=== PATIENT | female | born 1990 | race African-American/Black ===

== ENCOUNTER 2017-07-11 11:57 | Emergency (ER) | payer BC ==
[~2017-07-11] VITALS: Ht 162.6 cm; Wt 59.0 kg
--- NOTE | 2017-07-11 12:46 | Emergency Room Report ---
History of Present Illness General Chief Complaint: General Complaint Source: Patient (David Patterson) Present Illness HPI 27 yo female patient presents to ER with multiple complaints x2 days. Patient complains of hair loss, cough, and joint pain. Reports cough is dry. Denies breathing difficulty. Hx of sick contacts. Reports cough began prior to flight to [place]; lives in [place] for school. Denies fever, chest pain, SOB. Denies hx of asthma or cardiovascular disease. Denies calf pain. Denies taking anticoagulants. Denies itching scalp, denies pain or drainage from scalp. Reports hair loss from scalp and eyebrows. Denies new medications, detergents, or soaps. Patient denies hx of heart, thyroid, or rheumatological disease. Reports recent stress; states engaged and going to [employer] to plan wedding tomorrow; and mother in ER with patient. Reports joint warmth. Denies hx of gout or RA. Denies hx of lupus. Denies dysuria, hematuria, vaginal discharge. Denies vomiting, diarrhea, abdominal pain. Denies . Takes control, denies vaginal pain, dysuria. Also complains of left toe pain. Denies hx of injury. Reports walking with "little bit" of a limp Denies pain worse in morning. Reports feels similar to swelling in other joints. Reports workout 5x/ week, (David Patterson) Allergies: Coded Allergies: No Known Allergies (Unverified , 07/11/17) Patient History Past Medical History: see triage record Now: No Reviewed Nursing Documentation: PMH: Agreed, PSxH: Agreed (David Patterson) Nursing Documentation-PMH Past Medical History: No Stated History (David Patterson) Review of Systems All Other Systems: negative except mentioned in HPI (David Patterson) Physical Exam Vital Signs Date Time Temp Pulse Resp B/P (MAP) Pulse Ox O2 Delivery O2 Flow Rate FiO2 07/11/17 12:28 98.0 78 16 110/70 98 Room Air 98.1 Sp02 EP Interpretation: reviewed, normal General Appearance: well appearing, no apparent distress, alert, GCS 15 Head: normocephalic, atraumatic, other - no bald patches, no broken hair shafts Eyes: bilateral eye normal inspection, bilateral eye PERRL ENT: hearing grossly normal, normal pharynx, no angioedema, normal voice, TMs + canals normal, uvula midline, moist mucus membranes Neck: full range of motion Respiratory: lungs clear, normal breath sounds, no rhonchi, no respiratory distress, no accessory muscle use, no wheezing, speaking full sentences Cardiovascular #1: regular rate, rhythm, no edema Cardiovascular #2: 2+ radial (R), 2+ radial (L), 2+ dorsalis pedis (R), 2+ dorsalis pedis (L) Gastrointestinal: non tender, soft, no mass, non-distended, no guarding, no rebound Genitourinary: no CVA tenderness Musculoskeletal: back normal, digits/nails normal, gait/station normal, normal range of motion, non-tender, no calf tenderness, Dionisio's Sign negative, other - NVI, no erythema or ecchymosis, sensation intact to light touch, tender - left foot, second toe: TTP, cap refill <2 seconds, mild swelling Neurologic: alert, oriented x3, responsive, audio visual manager III-XII nml as tested, motor strength/tone normal, sensory intact Psychiatric: mood/affect normal Skin: no rash Lymphatic: no adenopathy (David Patterson PMiladisAMiladis) Medical Decision Making PA Attestation Dr. Abdul is my supervising Physician whom patient management has been discussed with. (David Patterson P.AMiladis) Diagnostic Impression: Primary Impression: Hair loss Additional Impressions: Joint pain Cough Toe fracture ER Course Pt. presents to the ED c/o multiple complaints. Multiple differentials considered. Ddx considered but are not limited to thyroid disorder, systemic disorder, infection, , fracture, sprain, strain, contusion. Low suspicion for PE per Well's criteria. No hemoptysis, no chest pain, no shortness of breath, Negative Dionisio sign. Vital signs: are WNL, pt. is afebrile Ordered labs, UA, xray foot and pain medication. ED COURSE: Provided with Tylenol for pain. Xray of right foot ordered. Results show possible hairline fracture per the preliminary reading. Will treat as fracture. Will tristen tape shoe and place foot in hard-soled shoe. Take NSAIDs for pain. Followup with ortho. WBAT. RICE method. Labs unremarkable, no elevation in WBC, no elevation in liver enzymes Urine unremarkable Urine negative TSH WNL Discussed results with patient. Followup with primary care provider and employment instructional associate for hair loss. May be related to stress or systemic disorder. No signs of infection, does not require medication for treatment at this time. Take NSAIDs for joint pain. Patient declined crutches. Patient questions asked and answered. DISCHARGE: Rx provided for Tylenol Rx provided for promethazine cough syrup At this time pt is stable for d/c to home. Patient is resting comfortably, in no acute distress, nontoxic appearing, talking without difficulty, laughing and smiling. Patient to take medications as instructed Will provide with patient care instructions and any necessary prescriptions. Care plan and follow-up instructions provided. Patient instructed to follow-up with primary care provider in 3 - 5 days. Patient questions asked and answered. Patient reports understanding and agreement to treatment plan. ER precautions given. Patient instructed to return to ER immediately for any new or worsening of symptoms including but not limited to increasing SOB, persistent fever. Labs Test 07/11/17 13:05 07/11/17 13:15 Urine Color Pale yellow Urine Appearance Clear Urine pH 6 (4.5-8.0) Urine Specific [place] 1.010 (1.005-1.035) Urine Protein Negative (NEGATIVE) Urine Glucose (UA) Negative (NEGATIVE) Urine Ketones Negative (NEGATIVE) Urine Occult Blood Negative (NEGATIVE) Urine Nitrite Negative (NEGATIVE) Urine Bilirubin Negative (NEGATIVE) Urine Urobilinogen Normal MG/DL (0.0-1.0) Urine Leukocyte Esterase Negative (NEGATIVE) Urine HCG, Qualitative Negative White Blood Count 6.2 K/UL (4.8-10.8) Red Blood Count 4.70 M/UL (4.20-5.40) Hemoglobin 13.5 G/DL (12.0-16.0) Hematocrit 40.4 % (37.0-47.0) Mean Corpuscular Volume 86 FL (80-99) Mean Corpuscular Hemoglobin 28.6 PG (27.0-31.0) Mean Corpuscular Hemoglobin Concent 33.4 G/DL (32.0-36.0) Red Cell Distribution Width 11.7 % (11.6-14.8) Platelet Count 235 K/UL (150-450) Mean Platelet Volume 7.8 FL (6.5-10.1) Neutrophils (%) (Auto) 53.0 % (45.0-75.0) Lymphocytes (%) (Auto) 27.3 % (20.0-45.0) Monocytes (%) (Auto) 8.8 % (1.0-10.0) Eosinophils (%) (Auto) 10.1 % (0.0-3.0) Basophils (%) (Auto) 0.9 % (0.0-2.0) Sodium Level 138 MMOL/L (136-145) Potassium Level 4.3 MMOL/L (3.5-5.1) Chloride Level 107 MMOL/L (98-107) Carbon Dioxide Level 23 MMOL/L (21-32) Anion Gap 8 mmol/L (5-15) Blood Urea Nitrogen 13 mg/dL (7-18) Creatinine 1.1 MG/DL (0.55-1.30) Estimat Glomerular Filtration Rate > 60 mL/min (>60) Glucose Level 87 MG/DL (74-106) Calcium Level 8.9 MG/DL (8.5-10.1) Total Bilirubin 0.1 MG/DL (0.2-1.0) Aspartate Amino Transf (AST/SGOT) 27 U/L (15-37) Alanine Aminotransferase (ALT/SGPT) 29 U/L (12-78) Alkaline Phosphatase 53 U/L (46-116) Total Protein 7.2 G/DL (6.4-8.2) Albumin 3.5 G/DL (3.4-5.0) Globulin 3.7 g/dL Albumin/Globulin Ratio 0.9 (1.0-2.7) Thyroid Stimulating Hormone (TSH) 1.359 uiU/mL (0.358-3.740) (David Patterson P.A.) Other X-Ray Diagnostic Results Other X-Ray Diagnostic Results : X-Ray ordered: left foot # of Views/Limited Vs Complete: 3 View Indication: Pain EP Interpretation: Yes PA Xray: Interpretation reviewed, by supervising MD, and agrees with findings. Interpretation: no dislocation, no soft tissue swelling, other - second toe left foot proximal phalanx, possible fracture vs artifact Impression: No acute disease PA Scribe Text Rick Patterson PA-C (David Patterson P.A.) Other X-Ray Diagnostic Results : Electronically Signed by: Scribe documentation reviewed by me and is accurate, Migel Abdul MD. (Migel Abdul M.D.) Last Vital Signs Date Time Temp Pulse Resp B/P (MAP) Pulse Ox O2 Delivery O2 Flow Rate FiO2 07/11/17 12:28 98.0 78 16 110/70 98 Room Air 98.1 (David Patterson) Disposition: HOME, SELF-CARE Condition: Stable Scripts Promethazine Hcl (PROMETHAZINE HCL*) 6.25 Mg/5 Ml Syrup 5 ML ORAL Q8H, #120 ML 0 Refills Prov: David Patterson 07/11/17 Acetaminophen* (TYLENOL EXTRA STRENGTH*) 500 Mg Tablet 500 MG ORAL Q8H Y for Prn Headache/Temp > 101, #30 TAB 0 Refills Prov: David Patterson 07/11/17 Patient Instructions: Cough, Adult, [id number], Joint Pain, [id number], Toe Fracture, [id number] Additional Instructions: Followup with primary care provider in 3 -5 days. Discuss further referral and treatment. Discuss labs and workup for SLE, Thyroid and rheumatological disorders. Take medications as directed. Patient questions asked and answered. ER precautions given, patient instructed to return to ER immediately for any new or worsening of symptoms. David Patterson Jul 11, 2017 12:46 Migel Abdul M.D. Jul 14, 2017 02:20
[2017-07-11] MEDS ORDERED: Acetaminophen 500mg (ES) tab ORAL ONE (13:00)
[2017-07-11 13:37] LABS: BASOPHILS % (AUTO) 0.9 % (0.0-2.0); EOSINOPHILS % (AUTO) 10.1 % (0.0-3.0); HEMATOCRIT 40.4 % (37.0-47.0); HEMOGLOBIN 13.5 G/DL (12.0-16.0); LYMPHOCYTES % (AUTO) 27.3 % (20.0-45.0); MEAN CORPUSCULAR VOLUME 86 FL (80-99); MONOCYTES % (AUTO) 8.8 % (1.0-10.0); PLATELET COUNT 235 K/UL (150-450); RED CELL DISTRIBUTION WIDTH 11.7 % (11.6-14.8); WHITE BLOOD COUNT 6.2 K/UL (4.8-10.8)
[2017-07-11 13:43] LABS: APPEARANCE,URINE CLEAR; BILIRUBIN, URINE NEGATIVE (NEGATIVE); COLOR,URINE PALE YELLOW; GLUCOSE, URINE (UA) NEGATIVE (NEGATIVE); KETONES,URINE NEGATIVE (NEGATIVE); LEUKOCYTE ESTERASE ,URINE NEGATIVE (NEGATIVE); NITRITE,URINE NEGATIVE (NEGATIVE); PH,URINE 6 (4.5-8.0); PROTEIN,URINE NEGATIVE (NEGATIVE); UROBILINOGEN,URINE NORMAL MG/DL (0.0-1.0)
[2017-07-11 13:51] LABS: ANION GAP 8 mmol/L (5-15); BLOOD UREA NITROGEN 13 mg/dL (7-18); CALCIUM 8.9 MG/DL (8.5-10.1); CARBON DIOXIDE 23 MMOL/L (21-32); CHLORIDE 107 MMOL/L (98-107); CREATININE 1.1 MG/DL (0.55-1.30); POTASSIUM 4.3 MMOL/L (3.5-5.1); SODIUM 138 MMOL/L (136-145)
[2017-07-11] MEDS ORDERED: PROMETHAZI6.25 MG/1 ORAL (13:55)
[2017-07-11] MEDS ORDERED: TYLENOL EXTRA500 MG ORAL (13:55)
[2017-07-11 14:04] LABS: ALANINE AMINOTRANSFERASE 29 U/L (12-78); ALBUMIN 3.5 G/DL (3.4-5.0); ALBUMIN/GLOBULIN RATIO 0.9 (1.0-2.7); ALKALINE PHOSPHATASE 53 U/L (46-116); ASPARTATE AMINO TRANSFERASE 27 U/L (15-37); BILIRUBIN,TOTAL 0.1 MG/DL (0.2-1.0)
[2017-07-11 14:24] VITALS: BP 127/83
--- NOTE | 2017-07-12 10:40 | Diagnostic Imaging Report ---
Indication: Foot pain Technique: 3 views left foot Comparison: none Findings: There is mild metatarsus adductus. No acute fractures. No dislocations. The joint spaces are preserved Impression: Negative
== END 2017-07-11 14:24 | disposition home or self-care (01) ==
LOC: EMR 12:44
DX: S92.912A Unspecified fracture of left toe(s), initial encounter for closed fracture (principal); M25.50 Pain in unspecified joint; R05 Cough; L65.9 Nonscarring hair loss, unspecified; X58.XXXA Exposure to other specified factors, initial encounter; Y92.9 Unspecified place or not applicable
CPT/HCPCS: 36415; 80053; 81003; 81025; 84443; 85025; 99284